=== PATIENT | male | born 1990 | race African-American/Black ===

== ENCOUNTER 2020-12-30 09:34 | Emergency (ER) | payer OTHER ==
[2020-12-30] MEDS ORDERED: SODIUM CHLORIDE 0.9% 1,000 ML IV STA (10:01)
[2020-12-30] MEDS ORDERED: ACETAMINOPHEN TAB 500 MG TAB PO STA (10:02)
[2020-12-30] MEDS ORDERED: ONDANSETRON 4 MG/2 ML VIAL IVP STA (10:02)
--- NOTE | 2020-12-30 10:19 | ED ---
General Adult HPI - General Chief complaint: Chest Pain Stated complaint: Chest Pain Source: patient Mode of arrival: ambulatory Limitations: no limitations - History of Present Illness Initial comments: 30-year-old male presents to the emergency room for a chief complaint of upper abdominal pain and chest pain. Patient reports this has been ongoing for 3 or 4 days now. States that the pain worsens when he tries to eat or drink anything. It also worsens with coughing. Patient states he has developed a significant cough in the past 4 days as well. Patient states he has been nauseous and vomiting as well. States he has had a fever over the past 2 days up to 102. Patient reports that he was seen at [facility] yesterday and told it was not cardiac, likely a gastritis. Patient did test negative for rotavirus at that time.Patient has no other complaints at this time including shortness of breath, headache, or visual changes. - Related Data Previous Rx's Medication Instructions Recorded Benzonatate [Tessalon Perles] 200 mg PO Q8H PRN #15 capsule 12/30/20 Famotidine [Pepcid] 20 mg PO BID #30 tablet 12/30/20 Allergies Allergy/AdvReac Type Severity Reaction Status Date / Time No Known Allergies Allergy Verified 12/30/20 11:55 Review of Systems ROS Statement: Those systems with pertinent positive or pertinent negative responses have been documented in the HPI. ROS Other: All systems not noted in ROS Statement are negative. Past Medical History Past Medical History: No Reported History History of Any Multi-Drug Resistant Organisms: None Reported Past Surgical History: No Surgical Hx Reported Past Psychological History: No Psychological Hx Reported Smoking Status: Never smoker Past Alcohol Use History: None Reported Past Drug Use History: Marijuana General Exam Limitations: no limitations General appearance: alert, in no apparent distress Head exam: Present: atraumatic, normocephalic, normal inspection Eye exam: Present: normal appearance, PERRL, EOMI. Absent: scleral icterus, conjunctival injection, periorbital swelling ENT exam: Present: normal exam, mucous membranes moist Neck exam: Present: normal inspection, full ROM. Absent: tenderness, meningismus, lymphadenopathy Respiratory exam: Present: normal lung sounds bilaterally. Absent: respiratory distress, wheezes, rales, rhonchi, stridor Cardiovascular Exam: Present: regular rate, normal rhythm, normal heart sounds. Absent: systolic murmur, diastolic murmur, rubs, gallop, clicks GI/Abdominal exam: Present: soft, tenderness (epigastric and RUQ tenderness), normal bowel sounds. Absent: distended, guarding, rebound, rigid Neurological exam: Present: alert Course Vital Signs 12/30/20 12/30/20 12/30/20 09:35 09:50 10:46 Temperature 98.5 F 101 F H Pulse Rate 80 85 Respiratory 16 18 Rate Blood Pressure 136/85 148/93 O2 Sat by Pulse 97 96 Oximetry 12/30/20 12/30/20 11:10 11:34 Temperature 99.4 F Pulse Rate 83 Respiratory 16 Rate Blood Pressure 152/92 O2 Sat by Pulse 98 Oximetry EKG Findings - EKG Comments: EKG Findings:: NSR, vent rate 92, ND int 128, QTc 422 Medical Decision Making - Medical Decision Making Patient's previous visit from [facility] was reviewed from yesterday. Patient did have a normal d-dimer yesterday which was 406, normal limit is 500 at that facility. He had a negative troponin. He did have a CT abdomen and pelvis without contrast that showed no acute abnormality. He is well appearing. Nontoxic. Patient presents for cough, chest pain, abdominal pain, nausea vomiting. Vitals are stable and patient does have a fever. EKG nonischemic. Patient does not have significant cardiac risk factors such as smoking, family history, hypercholesterolemia, hyperlipidemia. CBC CMP unremarkable. White blood cell count is normal. Troponin is negative. Amylase and lipase are normal. Patient is dehydrated with 2+ ketones. Ultrasound was obtained which showed no shadowing mobile gallstones or ultrasound evidence for acute cholecystitis. No acute process on chest x-ray. Patient was given Toradol for his pain. Patient does have a cough which started around the same time. This does worsen his chest pain. At this time we will try patient on Pepcid given his epigastric pain with vomiting. We'll try Tessalon Perles for cough. Patient's chest pain is atypical. It is sharp and worsens with coughing. No radiating pain to the arms or back. No significant risk factors. Heart score is less than 3. Suspect this is related to cough. Patient does have another coronavirus testing pending and will quarantine it. He is stable for outpatient follow-up. He should return here for any worsening symptoms. - Lab Data Result diagrams: 12/30/20 10:09 12/30/20 10:09 Lab Results 12/30/20 12/30/20 12/30/20 Range/Units 10:09 10:09 10:09 WBC 9.6 (3.8-10.6) k/uL RBC 5.59 (4.30-5.90) m/uL Hgb 16.1 (13.0-17.5) gm/dL Hct 48.4 (39.0-53.0) % MCV 86.6 (80.0-100.0) fL MCH 28.8 (25.0-35.0) pg MCHC 33.2 (31.0-37.0) g/dL RDW 13.5 (11.5-15.5) % Plt Count 292 (150-450) k/uL MPV 6.8 Neutrophils % 77 % Lymphocytes % 15 % Monocytes % 6 % Eosinophils % 0 % Basophils % 1 % Neutrophils # 7.4 (1.3-7.7) k/uL Lymphocytes # 1.4 (1.0-4.8) k/uL Monocytes # 0.6 (0-1.0) k/uL Eosinophils # 0.0 (0-0.7) k/uL Basophils # 0.1 (0-0.2) k/uL PT 10.9 (9.0-12.0) sec INR 1.0 (<1.2) APTT 26.4 (22.0-30.0) sec Sodium 138 (137-145) mmol/L Potassium 3.9 (3.5-5.1) mmol/L Chloride 108 H (98-107) mmol/L Carbon Dioxide 21 L (22-30) mmol/L Anion Gap 9 mmol/L BUN 15 (9-20) mg/dL Creatinine 0.95 (0.66-1.25) mg/dL Est GFR (CKD-EPI)AfAm >90 (>60 ml/min/1.73 sqM) Est GFR (CKD-EPI)NonAf >90 (>60 ml/min/1.73 sqM) Glucose 95 (74-99) mg/dL Plasma Lactic Acid Walter (0.7-2.0) mmol/L Calcium 8.8 (8.4-10.2) mg/dL Magnesium 1.9 (1.6-2.3) mg/dL Total Bilirubin 1.2 (0.2-1.3) mg/dL AST 26 (17-59) U/L ALT 26 (4-49) U/L Alkaline Phosphatase 78 (38-126) U/L Troponin I (0.000-0.034) ng/mL Total Protein 6.9 (6.3-8.2) g/dL Albumin 3.8 (3.5-5.0) g/dL Amylase 76 (30-110) U/L Lipase 194 (23-300) U/L Urine Color Urine Appearance (Clear) Urine pH (5.0-8.0) Ur Specific Tate (1.001-1.035) Urine Protein (Negative) Urine Glucose (UA) (Negative) Urine Ketones (Negative) Urine Blood (Negative) Urine Nitrite (Negative) Urine Bilirubin (Negative) Urine Urobilinogen (<2.0) mg/dL Ur Leukocyte Esterase (Negative) Urine RBC (0-5) /hpf Urine WBC (0-5) /hpf Ur Squamous Epith Cells (0-4) /hpf Urine Mucus (None) /hpf Coronavirus (PCR) (Not Detectd) 12/30/20 12/30/20 12/30/20 Range/Units 10:09 10:09 10:42 WBC (3.8-10.6) k/uL RBC (4.30-5.90) m/uL Hgb (13.0-17.5) gm/dL Hct (39.0-53.0) % MCV (80.0-100.0) fL MCH (25.0-35.0) pg MCHC (31.0-37.0) g/dL RDW (11.5-15.5) % Plt Count (150-450) k/uL MPV Neutrophils % % Lymphocytes % % Monocytes % % Eosinophils % % Basophils % % Neutrophils # (1.3-7.7) k/uL Lymphocytes # (1.0-4.8) k/uL Monocytes # (0-1.0) k/uL Eosinophils # (0-0.7) k/uL Basophils # (0-0.2) k/uL PT (9.0-12.0) sec INR (<1.2) APTT (22.0-30.0) sec Sodium (137-145) mmol/L Potassium (3.5-5.1) mmol/L Chloride (98-107) mmol/L Carbon Dioxide (22-30) mmol/L Anion Gap mmol/L BUN (9-20) mg/dL Creatinine (0.66-1.25) mg/dL Est GFR (CKD-EPI)AfAm (>60 ml/min/1.73 sqM) Est GFR (CKD-EPI)NonAf (>60 ml/min/1.73 sqM) Glucose (74-99) mg/dL Plasma Lactic Acid Walter 0.9 (0.7-2.0) mmol/L Calcium (8.4-10.2) mg/dL Magnesium (1.6-2.3) mg/dL Total Bilirubin (0.2-1.3) mg/dL AST (17-59) U/L ALT (4-49) U/L Alkaline Phosphatase (38-126) U/L Troponin I <0.012 (0.000-0.034) ng/mL Total Protein (6.3-8.2) g/dL Albumin (3.5-5.0) g/dL Amylase (30-110) U/L Lipase (23-300) U/L Urine Color Yellow Urine Appearance Clear (Clear) Urine pH 6.0 (5.0-8.0) Ur Specific Tate 1.033 (1.001-1.035) Urine Protein 3+ H (Negative) Urine Glucose (UA) Negative (Negative) Urine Ketones 2+ H (Negative) Urine Blood Trace H (Negative) Urine Nitrite Negative (Negative) Urine Bilirubin 1+ H (Negative) Urine Urobilinogen 12.0 (<2.0) mg/dL Ur Leukocyte Esterase Negative (Negative) Urine RBC 6 H (0-5) /hpf Urine WBC 3 (0-5) /hpf Ur Squamous Epith Cells 1 (0-4) /hpf Urine Mucus Rare H (None) /hpf Coronavirus (PCR) (Not Detectd) 12/30/20 Range/Units 10:42 WBC (3.8-10.6) k/uL RBC (4.30-5.90) m/uL Hgb (13.0-17.5) gm/dL Hct (39.0-53.0) % MCV (80.0-100.0) fL MCH (25.0-35.0) pg MCHC (31.0-37.0) g/dL RDW (11.5-15.5) % Plt Count (150-450) k/uL MPV Neutrophils % % Lymphocytes % % Monocytes % % Eosinophils % % Basophils % % Neutrophils # (1.3-7.7) k/uL Lymphocytes # (1.0-4.8) k/uL Monocytes # (0-1.0) k/uL Eosinophils # (0-0.7) k/uL Basophils # (0-0.2) k/uL PT (9.0-12.0) sec INR (<1.2) APTT (22.0-30.0) sec Sodium (137-145) mmol/L Potassium (3.5-5.1) mmol/L Chloride (98-107) mmol/L Carbon Dioxide (22-30) mmol/L Anion Gap mmol/L BUN (9-20) mg/dL Creatinine (0.66-1.25) mg/dL Est GFR (CKD-EPI)AfAm (>60 ml/min/1.73 sqM) Est GFR (CKD-EPI)NonAf (>60 ml/min/1.73 sqM) Glucose (74-99) mg/dL Plasma Lactic Acid Walter (0.7-2.0) mmol/L Calcium (8.4-10.2) mg/dL Magnesium (1.6-2.3) mg/dL Total Bilirubin (0.2-1.3) mg/dL AST (17-59) U/L ALT (4-49) U/L Alkaline Phosphatase (38-126) U/L Troponin I (0.000-0.034) ng/mL Total Protein (6.3-8.2) g/dL Albumin (3.5-5.0) g/dL Amylase (30-110) U/L Lipase (23-300) U/L Urine Color Urine Appearance (Clear) Urine pH (5.0-8.0) Ur Specific Tate (1.001-1.035) Urine Protein (Negative) Urine Glucose (UA) (Negative) Urine Ketones (Negative) Urine Blood (Negative) Urine Nitrite (Negative) Urine Bilirubin (Negative) Urine Urobilinogen (<2.0) mg/dL Ur Leukocyte Esterase (Negative) Urine RBC (0-5) /hpf Urine WBC (0-5) /hpf Ur Squamous Epith Cells (0-4) /hpf Urine Mucus (None) /hpf Coronavirus (PCR) Not Detected (Not Detectd) Disposition Clinical Impression: Cough, Atypical chest pain, Nausea & vomiting Disposition: HOME SELF-CARE Condition: Good Instructions (If sedation given, give patient instructions): Abdominal Pain (ED) Additional Instructions: Please take Tessalon Perles for cough. Take Tylenol for pain and fever. Take Pepcid for epigastric pain. Follow up with GI. Return to the emergency room or any worsening symptoms. Continue to quarantine until your other coronavirus test is back. Prescriptions: Famotidine [Pepcid] 20 mg PO BID #30 tablet Benzonatate [Tessalon Perles] 200 mg PO Q8H PRN #15 capsule PRN Reason: Cough Is patient prescribed a controlled substance at d/c from ED?: No Referrals: Elana Chun DO [REFERRING] - 1-2 days Simona Borges MD [STAFF PHYSICIAN] - 1-2 days Time of Disposition: 12:08
--- NOTE | 2020-12-30 10:28 | XR ---
EXAMINATION TYPE: XR chest 2V DATE OF EXAM: 12/30/2020 COMPARISON: NONE HISTORY: Chest pain for 4 days. TECHNIQUE: Frontal and lateral views of the chest are obtained. FINDINGS: Overlying EKG leads. There is no focal air space opacity, pleural effusion, or pneumothora x seen. The cardiac silhouette size is within normal limits. The osseous structures are intact. IMPRESSION: No acute process.
[2020-12-30 10:44] LABS: Basophils # (A) 0.1 k/uL (0-0.2); Basophils % (A) 1 %; Eosinophils % (A) 0 %; HCT 48.4 % (39.0-53.0); HGB 16.1 gm/dL (13.0-17.5); Lymphocytes # (A) 1.4 k/uL (1.0-4.8); Lymphocytes % (A) 15 %; MCH 28.8 pg (25.0-35.0); MCHC 33.2 g/dL (31.0-37.0); MCV 86.6 fL (80.0-100.0); Mean Platelet Volume 6.8; Monocytes # (A) 0.6 k/uL (0-1.0); Monocytes % (A) 6 %; Neutrophils # (A) 7.4 k/uL (1.3-7.7); Neutrophils % (A) 77 %; Platelet Count 292 k/uL (150-450); RBC 5.59 m/uL (4.30-5.90); RDW 13.5 % (11.5-15.5); WBC 9.6 k/uL (3.8-10.6)
[2020-12-30 10:50] LABS: Partial Thromboplastin Time 26.4 sec (22.0-30.0); Prothrombin Time 10.9 sec (9.0-12.0)
[2020-12-30 10:53] LABS: ALT 26 U/L (4-49); AST 26 U/L (17-59); African American GFR (CKD) >90 (>60 ml/min/1.73 sqM); Albumin 3.8 g/dL (3.5-5.0); Alkaline Phosphatase 78 U/L (38-126); Amylase 76 U/L (30-110); Anion Gap 9 mmol/L; Blood Urea Nitrogen 15 mg/dL (9-20); Calcium 8.8 mg/dL (8.4-10.2); Carbon Dioxide 21 mmol/L (22-30); Chloride 108 mmol/L (98-107); Glucose 95 mg/dL (74-99); Lipase 194 U/L (23-300); Magnesium 1.9 mg/dL (1.6-2.3); Non-African American GFR(CKD) >90 (>60 ml/min/1.73 sqM); Potassium 3.9 mmol/L (3.5-5.1); Sodium 138 mmol/L (137-145); Total Bilirubin 1.2 mg/dL (0.2-1.3); Total Protein 6.9 g/dL (6.3-8.2)
[2020-12-30 11:10] VITALS: TEMP 99.4
--- NOTE | 2020-12-30 11:15 | US ---
EXAMINATION TYPE: US gallbladder DATE OF EXAM: 12/30/2020 COMPARISON: NONE CLINICAL HISTORY: pain. epigastric pain, nausea, vomiting EXAM MEASUREMENTS: Liver Length: 17.0 cm Gallbladder Wall: 0.2 cm CBD: 0.3 cm Right Kidney: 14.6 x 7.2 x 5.7 cm Pancreas: Obscured by bowel gas Liver: appears wnl Gallbladder: no evidence of stones Evidence for sonographic Tubbs's sign: no CBD: appears wnl Right Kidney: enlarged, no evidence of hydronephrosis Visualized pancreas appears within normal limits on initial 2 images. Visualized liver slightly heter ogeneous in appearance without worrisome mass or ductal dilatation. Gallbladder shows no mobile intra luminal gallstones. No abnormal wall thickening or surrounding fluid. No right-sided hydronephrosis. IMPRESSION: No shadowing mobile gallstones or ultrasound evidence for acute cholecystitis.
[2020-12-30 11:36] VITALS: RESP 16
[2020-12-30] MEDS ORDERED: KETOROLAC 15 MG/ML 1 ML VIAL IVP STA (11:50)
[2020-12-30 11:51] LABS: Appearance,Urine Clear (Clear); Bilirubin,Urine 1+ (Negative); Blood,Urine Trace (Negative); Color,Urine Yellow; Glucose,Urine (UA) Negative (Negative); Ketones,Urine 2+ (Negative); Leukocyte Esterase,Urine Negative (Negative); Mucus,Urine Rare /hpf; Nitrite,Urine Negative (Negative); Protein,Urine 3+ (Negative); RBC,Urine 6 /hpf (0-5); Specific Gravity,Urine 1.033 (1.001-1.035); Squamous Epithelial Cell,Urine 1 /hpf (0-4); WBC,Urine 3 /hpf (0-5)
[2020-12-30 12:02] VITALS: BP 149/96; PULSE 79
== END 2020-12-30 12:27 | disposition home or self-care (01) ==
LOC: EC 09:34
DX: R05 Cough (principal); R07.89 Other chest pain; R11.2 Nausea with vomiting, unspecified; R10.13 Epigastric pain; F12.90 Cannabis use, unspecified, uncomplicated; Z20.822 Contact with and (suspected) exposure to COVID-19
CPT/HCPCS: 36415; 93005; 80053; 82150; 83605; 83690; 83735; 84484; 85025; 85610; 85730; 81001; 87635; 71046; 76705; 99285; 96374; 96375; 96361; J2405; J1885

== ENCOUNTER 2020-12-31 15:28 | Emergency (ER) | payer OTHER ==
[2020-12-31] MEDS ORDERED: HYDROmorphone 1 MG/ML 1 ML SYRINGE IVP STA (15:58)
[2020-12-31] MEDS ORDERED: ONDANSETRON 4 MG/2 ML VIAL IVP STA (15:59)
[2020-12-31] MEDS ORDERED: LORazepam 2 MG/ML INJ IV STA (15:59)
[2020-12-31 16:14] LABS: WBC 9.8 k/uL (3.8-10.6)
[2020-12-31 16:15] LABS: Basophils # (A) 0.1 k/uL (0-0.2); Basophils % (A) 1 %; Eosinophils # (A) 0.1 k/uL (0-0.7); Eosinophils % (A) 1 %; HGB 16.2 gm/dL (13.0-17.5); Lymphocytes # (A) 2.3 k/uL (1.0-4.8); Lymphocytes % (A) 24 %; MCHC 35.2 g/dL (31.0-37.0); MCV 85.3 fL (80.0-100.0); Mean Platelet Volume 6.6; Monocytes # (A) 0.5 k/uL (0-1.0); Monocytes % (A) 5 %; Neutrophils # (A) 6.5 k/uL (1.3-7.7); Neutrophils % (A) 67 %; Platelet Count 319 k/uL (150-450); RBC 5.39 m/uL (4.30-5.90); RDW 12.5 % (11.5-15.5)
[2020-12-31 16:24] LABS: ALT 25 U/L (4-49); AST 26 U/L (17-59); African American GFR (CKD) >90 (>60 ml/min/1.73 sqM); Alkaline Phosphatase 80 U/L (38-126); Anion Gap 12 mmol/L; Blood Urea Nitrogen 14 mg/dL (9-20); Calcium 9.4 mg/dL (8.4-10.2); Carbon Dioxide 24 mmol/L (22-30); Chloride 106 mmol/L (98-107); Glucose 89 mg/dL (74-99); Lipase 244 U/L (23-300); Magnesium 2.1 mg/dL (1.6-2.3); Non-African American GFR(CKD) >90 (>60 ml/min/1.73 sqM); Potassium 4.2 mmol/L (3.5-5.1); Sodium 142 mmol/L (137-145); Total Bilirubin 0.9 mg/dL (0.2-1.3); Total Protein 7.3 g/dL (6.3-8.2)
[2020-12-31 16:29] LABS: Partial Thromboplastin Time 25.4 sec (22.0-30.0)
--- NOTE | 2020-12-31 16:37 | ED ---
Chest Pain HPI - General Chief Complaint: Chest Pain Stated Complaint: Revisit - Chest Pain Time Seen by Provider: 12/31/20 15:30 Source: patient Mode of arrival: ambulatory Limitations: no limitations - History of Present Illness Initial Comments: Patient is a 30-year-old male presents emergency Department with reported epigastric abdominal pain. Patient was seen in our emergency department for similar complaints yesterday. He was previously seen at [facility] where they complete laboratory studies and a CT. Everything was negative and therefore the patient was sent home. He presented yesterday where this was followed with a gallbladder ultrasound and repeat laboratory studies. Imaging from [facility] was requested and reviewed. Patient was sent home on Zofran, Tessalon Perles and famotidine. Patient presents today stating that he continues to have the same pain. He has been unable to eat or drink anything due to the pain. Patient has had nonbloody vomiting. Denies alcohol use, illicit drug use, NSAID use. He denies any sick contacts with similar symptoms. No history of peptic ulcer disease. Denies dysuria, hematuria or difficulty voiding. No penile discharge or bleeding. Denies diarrhea, constipation, melenic stools or hematochezia. Patient has never had an EGD. No fevers or chills. Patient reports to mild cough. Covid testing has been negative multiple times. No other alleviating, mounter automatic modifying factors - Related Data Previous Rx's Medication Instructions Recorded Benzonatate [Tessalon Perles] 200 mg PO Q8H PRN #15 capsule 12/30/20 Famotidine [Pepcid] 20 mg PO BID #30 tablet 12/30/20 Ondansetron [Zofran ODT] 4 mg PO Q8HR PRN #15 tab 12/30/20 Omeprazole [PriLOSEC] 20 mg PO AC-BRKFST #30 cap 12/31/20 Sucralfate [Carafate] 1 gm PO ACHS #56 tab 12/31/20 Allergies Allergy/AdvReac Type Severity Reaction Status Date / Time No Known Allergies Allergy Verified 12/31/20 16:44 Review of Systems ROS Statement: Those systems with pertinent positive or pertinent negative responses have been documented in the HPI. ROS Other: All systems not noted in ROS Statement are negative. EKG Findings - EKG Comments: EKG Findings:: EKG demonstrates from a sinus rhythm with a ventricular rate of 90. AZ interval 140. QRS 80. QTC of 428. No acute ST segment elevations or depressions Past Medical History Past Medical History: No Reported History History of Any Multi-Drug Resistant Organisms: None Reported Past Surgical History: No Surgical Hx Reported Past Psychological History: No Psychological Hx Reported Smoking Status: Never smoker Past Alcohol Use History: None Reported Past Drug Use History: Marijuana General Exam Limitations: no limitations General appearance: alert, in distress Head exam: Present: atraumatic, normocephalic, normal inspection Eye exam: Present: normal appearance, PERRL, EOMI. Absent: scleral icterus, conjunctival injection, periorbital swelling ENT exam: Present: normal exam, mucous membranes moist Neck exam: Present: normal inspection. Absent: tenderness, meningismus, lymphadenopathy Respiratory exam: Present: normal lung sounds bilaterally. Absent: respiratory distress, wheezes, rales, rhonchi, stridor Cardiovascular Exam: Present: regular rate, normal rhythm, normal heart sounds. Absent: systolic murmur, diastolic murmur, rubs, gallop, clicks GI/Abdominal exam: Present: soft, tenderness (epigastric), normal bowel sounds. Absent: distended, guarding, rebound, rigid Extremities exam: Present: normal inspection, full ROM, normal capillary refill. Absent: tenderness, pedal edema, joint swelling, calf tenderness Back exam: Present: normal inspection Neurological exam: Present: alert, oriented X3, CN II-XII intact Psychiatric exam: Present: normal affect, normal mood Skin exam: Present: warm, dry, intact, normal color. Absent: rash Course Vital Signs 12/31/20 12/31/20 12/31/20 15:32 16:55 17:00 Temperature 98.7 F Pulse Rate 84 97 98 Respiratory 18 20 20 Rate Blood Pressure 135/90 151/95 149/104 O2 Sat by Pulse 98 99 99 Oximetry 12/31/20 12/31/20 18:00 19:10 Temperature 98.1 F Pulse Rate 98 77 Respiratory 19 20 Rate Blood Pressure 142/94 156/68 O2 Sat by Pulse 99 96 Oximetry Chest Pain MDM - MDM On arrival patient is placed into room 5. Thorough history and physical exam was performed. 12-lead EKG was obtained. Laboratories is were conducted. Because the patient is yelling out in significant pain he is given 1 mg of Dilaudid and 1 mg of Ativan. He is found resting comfortably in the exam room. Patient is sent over for a CT angios of his chest due to the intensity of his pain which demonstrates no acute findings. 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 This is discussed with the patient. Patient is found resting comfortably in the room. I did discuss the diagnosis, differential and treatment options. I did have high concern for peptic ulcer disease. Patient instructed to not eat any spicy foods or drink alcohol. Patient is to not take any NSAIDs. I will give him a prescription for Prilosec and Carafate. He is given follow up information for the GI doctors. Inform the patient that he will likely need a scope. I did speak with the patient's over the phone to discuss all this information. Procedure sent to the pharmacy. He is asked to return to the emergency department for any new or worsening symptoms. Patient was discharged home in stable condition Disposition Clinical Impression: Nausea & vomiting, Epigastric abdominal pain Disposition: HOME SELF-CARE Condition: Stable Instructions (If sedation given, give patient instructions): Abdominal Pain (ED) Additional Instructions: You need to follow up with the GI doctor - you may need an EGD and HIDA scan. Return to the ED for any new or worsening symptoms. Prescriptions: Sucralfate [Carafate] 1 gm PO ACHS #56 tab Omeprazole [PriLOSEC] 20 mg PO AC-BRKFST #30 cap Is patient prescribed a controlled substance at d/c from ED?: No Referrals: None,Stated [Primary Care Provider] - 1-2 days Simona Borges MD [STAFF PHYSICIAN] - 1-2 days Time of Disposition: 18:57
--- NOTE | 2020-12-31 18:02 | CT ---
EXAMINATION TYPE: CT angio thor/abd pel aorta DATE OF EXAM: 12/31/2020 COMPARISON: None HISTORY: Chest and abdominal pain. CT DLP: 1582 mGycm Automated exposure control for dose reduction was used. CONTRAST: Performed with IV Contrast, patient injected with 100 mL of Isovue 370. Images were obtained from the top of the aortic arch to the mid heart without contrast. Images were o btained from the thoracic inlet to the floor the pelvis with IV contrast. There are 3-D post processe d images. There is normal branching pattern of the great vessels on the aortic arch. Thoracic aorta is intact. There is no aneurysm or dissection. Heart size is normal. There is no pericardial effusion. The lungs are clear of infiltrate. There is no evidence of a pulmonary mass. There is no evidence of filling d efect in the pulmonary arteries. Abdominal aorta appears normal. There is arterial flow in the celiac artery and superior mesenteric a rtery. There is arterial flow in the renal and iliac and femoral arteries. There is absent left kidne y. There is no evidence of stenosis. There is no aneurysm or dissection. There is no inguinal hernia. Ladder distends smoothly. There is no free fluid in the pelvis. There is no evidence of pelvic mass. There is contrast in the appendix which appears normal. The terminal ileum appears normal. There is n o mesenteric edema. There is no ascites or free air. There is no bowel obstruction. Liver spleen pancreas gallbladder stomach appear intact. The bile ducts are not dilated. Left kidney is absent. There is right kidney which appears to show compensatory hypertrophy. There is no hydronep hrosis. IMPRESSION: Negative CT angiogram of the chest abdomen pelvis. No evidence of arterial aneurysm or dissection. No evidence of pulmonary embolism.
[2020-12-31 19:20] VITALS: BP 156/68; PULSE 77; RESP 20; TEMP 98.1
== END 2020-12-31 19:10 | disposition home or self-care (01) ==
LOC: EC 15:28
DX: R11.2 Nausea with vomiting, unspecified (principal); R10.13 Epigastric pain; R07.9 Chest pain, unspecified; R05 Cough; F12.90 Cannabis use, unspecified, uncomplicated; Z79.899 Other long term (current) drug therapy
CPT/HCPCS: 36415; 93005; 80053; 83690; 83735; 84484; 85025; 85610; 85730; 71275; 74174; 99285; 96374; 96375 ×2; J2060; J2405; J1170; Q9967

== ENCOUNTER 2021-01-06 14:56 | Emergency (ER) | payer OTHER ==
[2021-01-06 15:01] VITALS: BP 140/89; PULSE 83; TEMP 98.2
[2021-01-06 15:33] VITALS: RESP 18
[2021-01-06] MEDS ORDERED: ONDANSETRON ODT 4 MG TAB PO STA (15:34)
--- NOTE | 2021-01-06 15:42 | XR ---
EXAMINATION TYPE: XR chest 2V DATE OF EXAM: 01/06/2021 COMPARISON: 12/30/2020 HISTORY: Chest pain TECHNIQUE: Frontal and lateral views of the chest are obtained. FINDINGS: There is no focal air space opacity. No evidence for pneumothorax. No pleural effusion. The cardiac silhouette size is within normal limits. The osseous structures are grossly intact. IMPRESSION: 1. No acute cardiopulmonary process.
--- NOTE | 2021-01-06 15:48 | ED ---
General Adult HPI - General Chief complaint: Upper Respiratory Infection Stated complaint: chest pain/cough/vomiting Time Seen by Provider: 01/06/21 15:09 Source: patient, RN notes reviewed Mode of arrival: ambulatory Limitations: no limitations - History of Present Illness Initial comments: This a 30-year-old male presents emergency Department with chief complaint cough congestion. Patient states he's been sick for several days was seen in the hospital a few times which she states he had a cardiac workup. He states that his heart states he has problems with his asthma. He states he is coughing so hard he is vomiting. Patient had multiple covert tests which have been negative. He was started on some medications for her stomach is at the he may have underlying gastritis or an ulcer. Patient reports that fevers chills and sweats. Patient has no other significant past history other than asthma. - Related Data Previous Rx's Medication Instructions Recorded Benzonatate [Tessalon Perles] 200 mg PO Q8H PRN #15 capsule 12/30/20 Famotidine [Pepcid] 20 mg PO BID #30 tablet 12/30/20 Ondansetron [Zofran ODT] 4 mg PO Q8HR PRN #15 tab 12/30/20 Omeprazole [PriLOSEC] 20 mg PO AC-BRKFST #30 cap 12/31/20 Sucralfate [Carafate] 1 gm PO ACHS #56 tab 12/31/20 Azithromycin [Zithromax Z-pack (6 0 mg PO DIRECTED #1 pack 01/06/21 tabs)] Ondansetron Odt [Zofran Odt] 4 mg PO Q8HR PRN #10 tab 01/06/21 predniSONE 50 mg PO DAILY #5 tab 01/06/21 Allergies Allergy/AdvReac Type Severity Reaction Status Date / Time No Known Allergies Allergy Verified 01/06/21 16:39 Review of Systems ROS Statement: Those systems with pertinent positive or pertinent negative responses have been documented in the HPI. ROS Other: All systems not noted in ROS Statement are negative. Past Medical History Past Medical History: No Reported History History of Any Multi-Drug Resistant Organisms: None Reported Past Surgical History: No Surgical Hx Reported Past Psychological History: No Psychological Hx Reported Smoking Status: Never smoker Past Alcohol Use History: None Reported Past Drug Use History: Marijuana General Exam Limitations: no limitations General appearance: alert, in no apparent distress Head exam: Present: atraumatic, normocephalic, normal inspection Eye exam: Present: normal appearance, PERRL, EOMI. Absent: scleral icterus, conjunctival injection, periorbital swelling ENT exam: Present: normal exam, normal oropharynx, mucous membranes moist Neck exam: Present: normal inspection, full ROM. Absent: tenderness, lymphadenopathy Respiratory exam: Present: wheezes. Absent: normal lung sounds bilaterally, respiratory distress, rales, rhonchi, stridor Cardiovascular Exam: Present: regular rate, normal rhythm, normal heart sounds. Absent: systolic murmur, diastolic murmur, rubs, gallop, clicks GI/Abdominal exam: Present: soft, normal bowel sounds. Absent: distended, tenderness, guarding, rebound, rigid Neurological exam: Present: alert, oriented X3 Skin exam: Present: warm, dry, intact, normal color. Absent: rash Course Vital Signs 01/06/21 01/06/21 14:58 15:31 Temperature 98.2 F Pulse Rate 83 Respiratory 20 18 Rate Blood Pressure 140/89 O2 Sat by Pulse 98 Oximetry Medical Decision Making - Medical Decision Making Patient's code is negative, x-ray does not show any definite infection. Patient has medical records. Patient be discharged on antibiotics steroids. Return parameters discussed. - Lab Data Lab Results 01/06/21 Range/Units 15:10 Coronavirus (PCR) Not Detected (Not Detectd) Disposition Clinical Impression: Asthmatic bronchitis Disposition: HOME SELF-CARE Condition: Stable Instructions (If sedation given, give patient instructions): Upper Respiratory Infection (ED) Additional Instructions: Please return to the Emergency Department if symptoms worsen or any other concerns. Prescriptions: predniSONE 50 mg PO DAILY #5 tab Azithromycin [Zithromax Z-pack (6 tabs)] 0 mg PO DIRECTED #1 pack Ondansetron Odt [Zofran Odt] 4 mg PO Q8HR PRN #10 tab PRN Reason: Nausea Is patient prescribed a controlled substance at d/c from ED?: No Referrals: None,Stated [Primary Care Provider] - 1-2 days Time of Disposition: 17:35
[2021-01-06] MEDS ORDERED: guaiFENesin-Coden 100-10MG/5ML 10 ML CUP PO STA (16:47)
== END 2021-01-06 17:46 | disposition home or self-care (01) ==
LOC: EC 14:56
DX: J45.909 Unspecified asthma, uncomplicated (principal); F12.90 Cannabis use, unspecified, uncomplicated
CPT/HCPCS: 71046; 87635; 93005; 99284

== ENCOUNTER 2021-07-29 07:59 | Emergency (ER) | payer OTHER ==
[2021-07-29 08:08] VITALS: RESP 20
--- NOTE | 2021-07-29 08:55 | XR ---
EXAMINATION TYPE: XR chest 2V DATE OF EXAM: 07/29/2021 COMPARISON: Chest x-ray January 06, 2021 HISTORY: Upper respiratory infection. TECHNIQUE: Frontal and lateral views of the chest are obtained. FINDINGS: There is no suspicious new focal air space opacity, pleural effusion, or pneumothorax seen . The cardiac silhouette size is stable and within normal limits. The osseous structures are intac t. IMPRESSION: No acute pulmonary process.
--- NOTE | 2021-07-29 09:10 | ED ---
URI HPI - General Chief Complaint: Upper Respiratory Infection Stated Complaint: Covid test, Fever, muscle aches Time Seen by Provider: 07/29/21 08:09 Source: patient, family, RN notes reviewed Limitations: no limitations - History of Present Illness Initial Comments: 31-year-old male presents to the emergency room complaining of not feeling well since last night. Patient notes he came to the emergency room to get tested for Covid. Patient was otherwise well-appearing in no apparent distress or pain. He denied any symptoms at this time. He denied chest pain shortness of breath headache nausea vomiting diarrhea constipation fever fatigue chills. - Related Data Previous Rx's Medication Instructions Recorded Benzonatate [Tessalon Perles] 200 mg PO Q8H PRN #15 capsule 12/30/20 Famotidine [Pepcid] 20 mg PO BID #30 tablet 12/30/20 Ondansetron [Zofran ODT] 4 mg PO Q8HR PRN #15 tab 12/30/20 Omeprazole [PriLOSEC] 20 mg PO AC-BRKFST #30 cap 12/31/20 Sucralfate [Carafate] 1 gm PO ACHS #56 tab 12/31/20 Azithromycin [Zithromax Z-pack (6 0 mg PO DIRECTED #1 pack 01/06/21 tabs)] Ondansetron Odt [Zofran Odt] 4 mg PO Q8HR PRN #10 tab 01/06/21 predniSONE 50 mg PO DAILY #5 tab 01/06/21 Allergies Allergy/AdvReac Type Severity Reaction Status Date / Time No Known Allergies Allergy Verified 07/29/21 08:08 Review of Systems ROS Statement: Those systems with pertinent positive or pertinent negative responses have been documented in the HPI. ROS Other: All systems not noted in ROS Statement are negative. Past Medical History Past Medical History: Asthma History of Any Multi-Drug Resistant Organisms: None Reported Past Surgical History: No Surgical Hx Reported Past Psychological History: No Psychological Hx Reported Smoking Status: Vaper Past Alcohol Use History: Occasional Past Drug Use History: Marijuana General Exam Limitations: no limitations General appearance: alert, in no apparent distress, obese Head exam: Present: atraumatic, normocephalic, normal inspection Eye exam: Present: normal appearance, PERRL, EOMI. Absent: scleral icterus, conjunctival injection, periorbital swelling ENT exam: Present: normal exam, mucous membranes moist Neck exam: Present: normal inspection. Absent: tenderness, meningismus, lymphadenopathy Respiratory exam: Present: normal lung sounds bilaterally. Absent: respiratory distress, wheezes, rales, rhonchi, stridor Cardiovascular Exam: Present: regular rate, normal rhythm, normal heart sounds. Absent: systolic murmur, diastolic murmur, rubs, gallop, clicks Extremities exam: Present: normal inspection, full ROM, normal capillary refill. Absent: tenderness, pedal edema, joint swelling, calf tenderness Neurological exam: Present: alert, oriented X3 Psychiatric exam: Present: normal affect, normal mood Skin exam: Present: warm, dry, intact, normal color. Absent: rash Course Vital Signs 07/29/21 07/29/21 08:05 08:28 Temperature 98.8 F Pulse Rate 96 Respiratory 20 20 Rate Blood Pressure 160/103 O2 Sat by Pulse 97 Oximetry Medical Decision Making - Medical Decision Making 31-year-old male complaining of not feeling well times one. Covid test, chest x-ray ordered. Covid test negative. Chest x-ray shows no acute process. Patient is agreeable with discharge home. Case discussed with Dr. Bryant, patient discharge home. - Lab Data Lab Results 07/29/21 Range/Units 08:18 Coronavirus (PCR) Not Detected (Not Detectd) - Radiology Data Radiology results: report reviewed, image reviewed Chest x-ray: No acute cardiopulmonary process. Disposition Clinical Impression: Encounter for screening for COVID-19 Disposition: HOME SELF-CARE Condition: Stable Instructions (If sedation given, give patient instructions): Upper Respiratory Infection (ED) Additional Instructions: Please return to the Emergency Department if symptoms worsen or any other concerns. Is patient prescribed a controlled substance at d/c from ED?: No Referrals: Lamin Morrison DO [Primary Care Provider] - 1-2 days Time of Disposition: 09:09
[2021-07-29 09:30] VITALS: BP 158/94; PULSE 90; TEMP 98.6
== END 2021-07-29 09:29 | disposition home or self-care (01) ==
LOC: EC 07:59
DX: Z20.822 Contact with and (suspected) exposure to COVID-19 (principal); J45.909 Unspecified asthma, uncomplicated; F17.290 Nicotine dependence, other tobacco product, uncomplicated; F12.90 Cannabis use, unspecified, uncomplicated; Z72.89 Other problems related to lifestyle
CPT/HCPCS: 71046; 87635; 99283